=== PATIENT | male | born 1985 | race Caucasian/White ===

== ENCOUNTER → 2022-02-06 | Outpatient (CLI) | payer OTHER | END | disposition home or self-care (01) | LOC: CT 00:34 | PROVIDERS: ATTEND Nurse Practitioner Family | DX: R61 Generalized hyperhidrosis (principal) ==

== ENCOUNTER → 2022-02-23 | Outpatient (CLI) | payer OTHER | END | disposition home or self-care (01) | LOC: US 10:30 | PROVIDERS: ATTEND Nurse Practitioner Family | DX: R94.5 Abnormal results of liver function studies (principal) ==

== ENCOUNTER → 2022-03-26 | Day surgery (SDC) | payer OTHER ==
[~2022-03-26] VITALS: Ht 177.8 cm; Wt 72.6 kg
[~2022-03-26] MED LIST: CARAFATE1 G1 PO; PROTONIX40 MG PO; SILDENAFIL20 M1 PO
[2022-03-26 10:31] VITALS: BP 117/48
[2022-03-26 13:10] VITALS: BP 96/60
[2022-03-26 13:25] VITALS: BP 102/54
[2022-03-26 13:38] VITALS: BP 113/80
== END | disposition home or self-care (01) ==
LOC: SDC 03-16 11:00
PROVIDERS: ATTEND Surgery
DX: R10.9 Unspecified abdominal pain (principal); K29.70 Gastritis, unspecified, without bleeding; K57.30 Diverticulosis of large intestine without perforation or abscess without bleeding; F41.9 Anxiety disorder, unspecified; F32.9 Major depressive disorder, single episode, unspecified; Z98.890 Other specified postprocedural states; Z79.899 Other long term (current) drug therapy

== ENCOUNTER 2022-04-11 14:56 | Emergency (ER) | payer OTHER ==
[~2022-04-11] VITALS: Ht 177.8 cm; Wt 77.1 kg
[2022-04-11] MEDS ORDERED: NAPROXEN250 MG PO ×3 (16:07→16:09)
[2022-04-11] MEDS ORDERED: CLINDAMYCIN HC300 MG PO ×3 (16:07→16:09)
[2022-04-11] MEDS ORDERED: Peridex 473 ML473 ML PO ×3 (16:07→16:09)
[2022-04-11] MEDS ORDERED: METRONIDAZOLE500 M1 PO ×3 (16:07→16:09)
== END 2022-04-11 16:13 | disposition home or self-care (01) ==
LOC: ED 14:56
DX: K13.79 Other lesions of oral mucosa (principal)

== ENCOUNTER 2022-08-26 16:50 | Emergency (ER) | payer OTHER ==
[~2022-08-26] VITALS: Ht 177.8 cm; Wt 77.1 kg
[~2022-08-26 16:50] MED LIST changes: +CLINDAMYCIN HC300 MG PO; +METRONIDAZOLE500 M1 PO; +NAPROXEN250 MG PO; +Peridex 473 ML473 ML PO
[2022-08-26] MEDS ORDERED: PREDNISONE20 M1 PO (20:41)
[2022-08-26] MEDS ORDERED: METHOCARBAMOL500 M1 PO (20:41)
== END 2022-08-26 20:43 | disposition home or self-care (01) ==
LOC: ED 16:50
DX: M54.12 Radiculopathy, cervical region (principal); R07.89 Other chest pain; Z79.899 Other long term (current) drug therapy; Z79.2 Long term (current) use of antibiotics; Z98.890 Other specified postprocedural states

== ENCOUNTER → 2022-08-28 | Outpatient (CLI) | payer OTHER ==
[~2022-08-28] MED LIST changes: +METHOCARBAMOL500 M1 PO; +PREDNISONE20 M1 PO
== END | disposition home or self-care (01) ==
LOC: CT 08:28
PROVIDERS: ATTEND Internal Medicine
DX: E32.0 Persistent hyperplasia of thymus (principal)

== ENCOUNTER → 2023-01-18 | Outpatient (CLI) | payer OTHER | END | disposition home or self-care (01) | LOC: MRI 09:27 | PROVIDERS: ATTEND Physician Assistant | DX: M51.26 Other intervertebral disc displacement, lumbar region (principal); M48.061 Spinal stenosis, lumbar region without neurogenic claudication; M48.07 Spinal stenosis, lumbosacral region; M48.02 Spinal stenosis, cervical region; M47.817 Spondylosis without myelopathy or radiculopathy, lumbosacral region ==

== ENCOUNTER → 2023-01-22 | Outpatient (CLI) | payer OTHER | END | disposition home or self-care (01) | LOC: MRI 01-19 00:32 | PROVIDERS: ATTEND Physician Assistant | DX: M54.6 Pain in thoracic spine (principal) ==

== ENCOUNTER 2023-08-22 03:12 | Emergency (ER) | payer OTHER ==
[~2023-08-22] VITALS: Ht 175.2 cm; Wt 77.1 kg
[2023-08-22 03:32] LABS: BASO % 0.2 % (0.0-1.0); EOS # 0.3 10*3/uL (0.0-0.4); EOS % 2.1 % (1.0-4.0); HEMATOCRIT 41.1 % (42.0-52.0); LYMPH # 2.2 10*3/uL (1.3-4.4); MEAN CELL VOLUME 90.3 fl (80.0-94.0); MEAN CORPUSCULAR HGB 32.3 pg (27.0-31.0); MEAN CORPUSCULAR HGB CONC 35.8 g/dl (33.0-37.0); MEAN PLATELET VOLUME 10.5 fl (9.6-12.3); MONO % 7.7 % (3.0-9.0); NEUT # 9.6 10*3/uL (2.3-7.9); NEUT % 72.7 % (47.0-73.0); PLATELET COUNT AUTOMATED 233 10*3/uL (130-400); RED BLOOD COUNT 4.55 10*6/uL (4.50-5.90); RED CELL DISTRI WIDTH 12.8 % (0-14.5); WHITE BLOOD COUNT 13.2 10*3/uL (4.8-10.8)
[2023-08-22 03:42] LABS: ACT PARTIAL THROMBO TIME 28.8 SECONDS (20.0-32.1)
[2023-08-22 03:53] LABS: ALKALINE PHOSPHATASE 89 U/L (46-116); BUN 12 mg/dl (9-23); CHLORIDE 107 mmol/L (98-107); LIPASE 60 U/L (12-53); POTASSIUM 3.9 mmol/L (3.4-5.1); SGPT/ALT 16 U/L (10-49)
[2023-08-22] MEDS ORDERED: AMOX-CLAV 875-1 EACH PO (05:19)
== END 2023-08-22 05:25 | disposition home or self-care (01) ==
LOC: ED 03:12
PROVIDERS: Internal Medicine
DX: J32.9 Chronic sinusitis, unspecified (principal); M54.2 Cervicalgia; R51.9 Headache, unspecified; F41.9 Anxiety disorder, unspecified; F32.A Depression, unspecified; Z98.890 Other specified postprocedural states

== ENCOUNTER 2023-11-05 09:28 | Emergency (ER) | payer OTHER ==
[~2023-11-05] VITALS: Ht 177.8 cm; Wt 72.6 kg
[~2023-11-05 09:28] MED LIST changes: +AMOX-CLAV 875-1 EACH PO
[2023-11-05 11:25] LABS: BASO % 0.5 % (0.0-1.0); EOS # 0.2 10*3/uL (0.0-0.4); HEMATOCRIT 47.8 % (42.0-52.0); LYMPH # 2.6 10*3/uL (1.3-4.4); MEAN CELL VOLUME 91.6 fl (80.0-94.0); MEAN CORPUSCULAR HGB 30.7 pg (27.0-31.0); MEAN CORPUSCULAR HGB CONC 33.5 g/dl (33.0-37.0); MEAN PLATELET VOLUME 10.2 fl (9.6-12.3); MONO # 0.6 10*3/uL (0.1-1.0); MONO % 7.3 % (3.0-9.0); NEUT # 4.2 10*3/uL (2.3-7.9); NEUT % 55.9 % (47.0-73.0); PLATELET COUNT AUTOMATED 225 10*3/uL (130-400); RED BLOOD COUNT 5.22 10*6/uL (4.50-5.90); RED CELL DISTRI WIDTH 12.2 % (0-14.5); WHITE BLOOD COUNT 7.5 10*3/uL (4.8-10.8)
[2023-11-05 11:46] LABS: ACT PARTIAL THROMBO TIME 27.6 SECONDS (20.0-32.1)
[2023-11-05 11:48] LABS: ALKALINE PHOSPHATASE 79 U/L (46-116); BUN 12 mg/dl (9-23); CHLORIDE 105 mmol/L (98-107); LIPASE 38 U/L (12-53); POTASSIUM 4.4 mmol/L (3.4-5.1); SGPT/ALT 34 U/L (5-49); TOTAL PROTEIN 7.3 gm/dL (6.0-8.0)
[2023-11-05] MEDS ORDERED: LEVOFLOXACIN750 M2 PO (14:17)
== END 2023-11-05 14:25 | disposition home or self-care (01) ==
LOC: ED 09:28
PROVIDERS: Emergency Medicine
DX: J32.9 Chronic sinusitis, unspecified (principal); F41.9 Anxiety disorder, unspecified; F32.A Depression, unspecified; R10.2 Pelvic and perineal pain; Z98.890 Other specified postprocedural states

== ENCOUNTER → 2023-12-09 | Outpatient (CLI) | payer OTHER ==
[~2023-12-09] MED LIST changes: +LEVOFLOXACIN750 M2 PO
== END | disposition home or self-care (01) ==
LOC: MRI 01:48
PROVIDERS: ATTEND Nurse Practitioner Family
DX: R41.0 Disorientation, unspecified (principal); R53.1 Weakness

== ENCOUNTER 2024-05-12 13:36 | Emergency (ER) | payer OTHER ==
[~2024-05-12] VITALS: Ht 177.8 cm; Wt 72.6 kg
[2024-05-12] MEDS ORDERED: CLOBETASOL PROPIONATE 30 GM TUBE T ONE (13:57)
[2024-05-12] MEDS ORDERED: Albuterol Sulf/Ipratropium 3 ML VIAL NEB ONE (14:00)
[2024-05-12] MEDS ORDERED: methylPREDNISolone sod succ 125 MG VIAL IM ONE (14:00)
[2024-05-12 14:14] LABS: BASO # 0.1 10*3/uL (0.0-0.1); BASO % 0.7 % (0.0-1.0); EOS # 0.4 10*3/uL (0.0-0.4); EOS % 4.4 % (1.0-4.0); LYMPH % 35.2 % (27.0-41.0); MEAN CELL VOLUME 90.1 fl (80.0-94.0); MEAN CORPUSCULAR HGB 31.2 pg (27.0-31.0); MEAN CORPUSCULAR HGB CONC 34.6 g/dl (33.0-37.0); MEAN PLATELET VOLUME 10.5 fl (9.6-12.3); MONO # 0.4 10*3/uL (0.1-1.0); MONO % 5.1 % (3.0-9.0); NEUT # 4.7 10*3/uL (2.3-7.9); NEUT % 54.4 % (47.0-73.0); PLATELET COUNT AUTOMATED 245 10*3/uL (130-400); RED BLOOD COUNT 4.55 10*6/uL (4.50-5.90); RED CELL DISTRI WIDTH 12.6 % (0-14.5); WHITE BLOOD COUNT 8.6 10*3/uL (4.8-10.8)
[2024-05-12 14:29] LABS: BUN 12 mg/dl (9-23); CHLORIDE 109 mmol/L (98-107); POTASSIUM 3.9 mmol/L (3.4-5.1)
== END 2024-05-12 15:45 | disposition home or self-care (01) ==
LOC: ED 13:36
PROVIDERS: Nurse Practitioner Family
DX: T63.441A Toxic effect of venom of bees, accidental (unintentional), initial encounter (principal); F41.9 Anxiety disorder, unspecified; F32.A Depression, unspecified; Z98.890 Other specified postprocedural states; Y92.89 Other specified places as the place of occurrence of the external cause

== ENCOUNTER → 2024-12-04 | Outpatient (CLI) | payer OTHER | END | disposition home or self-care (01) | LOC: MRI 02:01 | PROVIDERS: ATTEND Nurse Practitioner Family | DX: S73.192A Other sprain of left hip, initial encounter (principal); S73.191A Other sprain of right hip, initial encounter; X58.XXXA Exposure to other specified factors, initial encounter; Y93.89 Activity, other specified; Y92.89 Other specified places as the place of occurrence of the external cause; Y99.8 Other external cause status ==